=== PATIENT | male | born 1995 | race Caucasian/White ===

== ENCOUNTER → 2021-08-03 12:10 | Outpatient (CLI) | payer OTHER, SELFPAY ==
--- NOTE | 2021-08-03 12:15 | XR_ITS ---
PROCEDURE: XR TIBIA FIBULA RT 2V CLINICAL INDICATION: PAIN IN RT LEG COMPARISON: No exams were available for comparison FINDINGS: No fracture or dislocation. No lytic or blastic change. There is normal mineralization. The joint spaces are well-preserved. No significant degenerative/arthritic changes. No erosive changes evident. Other findings:None. IMPRESSION: No acute findings. Dictated by: Evert Hastings MD 08/03/2021 19:35 Evert Hastings MD in [place] 08/03/2021 19:35
== END ==
PROVIDERS: PCP Family Medicine; Visit Provider Family Medicine
DX: M79.604 Pain in right leg (principal)
CPT/HCPCS: 73590

== ENCOUNTER 2021-08-22 15:58 | Emergency (ER) | payer OTHER, SELFPAY ==
[2021-08-22 15:59] VITALS: BP 135/79; PULSE 87; RESP 18; TEMP 36.7; O2SAT 96; BMI 26.2
[2021-08-22 16:18] VITALS: BP 135/79; PULSE 90; RESP 14; O2SAT 96
--- NOTE | 2021-08-22 16:27 | [facility].EDGENADL ---
ED Disposition Clinical Impression: Pain of left lower extremity, Elevated d-dimer Disposition: Home, Self-Care Condition on Discharge: Good Additional Instructions: Return to the hospital tomorrow morning for Doppler of your left lower extremity. Take Xarelto as prescribed twice daily. Return to the emergency room if intolerable pain, severe swelling, chest pain, shortness of breath, or coughing up blood. Referrals: Asim Beltran MD [Primary Care Provider] - - Critical Care Critical Care Time: No Attestation: On 08/22/21, the high probability of a clinically significant, sudden or life threatening deterioration of the following system(s) required my full and direct attention, intervention and personal management. The time I documented below is in addition to time spent performing reported procedures but includes the following listed in this critical care notation. Medical Decision Making - Dannie Inquiry Pt receiving controlled substance: No Vital Signs: 08/22/21 15:59 08/22/21 16:18 08/22/21 16:30 Temperature 98.1 F Temperature Source Oral Pulse Rate 90 78 Pulse Rate [Right Radial] 87 Respiratory Rate 18 14 15 Blood Pressure 135/79 133/86 Blood Pressure [Right Arm] 135/79 Blood Pressure Mean 95 101 Blood Pressure Mean [Right Arm] 97 Blood Pressure Source [Right Arm] Automatic Cuff Blood Pressure Position [Right Arm] Sitting 02 Sat by Pulse Oximetry 96 96 97 Oxygen Delivery Method Room Air 08/22/21 17:00 08/22/21 17:30 Temperature Temperature Source Pulse Rate 74 78 Pulse Rate [Right Radial] Respiratory Rate 15 15 Blood Pressure 142/85 H 133/69 Blood Pressure [Right Arm] Blood Pressure Mean 96 90 Blood Pressure Mean [Right Arm] Blood Pressure Source [Right Arm] Blood Pressure Position [Right Arm] 02 Sat by Pulse Oximetry 96 99 Oxygen Delivery Method - Lab Data Lab Results 08/22/21 16:40: WBC 8.8, RBC 5.50, Hgb 15.7, Hct 46.0, MCV 83.6, MCH 28.5, MCHC 34.0, RDW 13.5, Plt Count 221, MPV 7.9, Neut % (Auto) 64.7, Lymph % (Auto) 26.4, [place] % (Auto) 7.1, Eos % (Auto) 0.9, Baso % (Auto) 0.9, Neut # (Auto) 5.7, Lymph # (Auto) 2.3, [place] # (Auto) 0.6, Eos # (Auto) 0.1, Baso # (Auto) 0.1 08/22/21 16:40: D-Dimer 5.20 H 08/22/21 16:40: Sodium 142, Potassium 4.1, Chloride 102, Carbon Dioxide 33 H, Anion Gap 11.1, BUN 16, Creatinine 0.90, Estimated Creat Clear 159, Estimated GFR 102, Est GFR ( Amer) 123, Glucose 104 H, Calcium 9.5 Result diagrams: 08/22/21 16:40 08/22/21 16:40 Orders (Tests/Meds): ED MEDICATIONS Generic Name Dose Route Start Last Admin Trade Name Freq PRN Reason Stop Dose Admin Rivaroxaban 1 juani 08/22/21 21:00 Rivaroxaban 15mg Take Home Pack (6) PO 09/21/21 20:59 BID MARIO Medical Decision Narrative: Elevated D-dimer. He will be started on Xarelto and return tomorrow morning for Doppler of his left lower extremity. General Adult HPI - General Chief complaint: PAIN Stated complaint: L leg pain radiating down to foot Time Seen by Provider: 08/22/21 16:20 Mode of Arrival: Ambulatory Limitations: No Limitations Description of Symptoms (Recalled from ER Triage Doc. by RN): Pt c/o left leg pain from knee extending down calf and into back of foot that has worsened over the last 1.5 weeks. No known injury. Swelling and tightness noted. Slight discoloration noted after last couple days per pt. Pt states that at times, his lower leg will tingle, but it is not constant. - History of Present Illness HPI narrative: 1-1/2-week history of pain in his left lower extremity. States that he initially felt the pain or pop in his posterior distal thigh or popliteal area. Since then the pain has moved down to so that it is mostly in his foot in the heel area when he walks. Also has pain in his calf. He feels like he sees veins that are popped out in the region of his distal thigh medially. No injury recalled. No chest pain or
[2021-08-22 16:30] VITALS: BP 133/86; PULSE 78; RESP 15; O2SAT 97
[2021-08-22 16:52] LABS: Basophils # 0.1 K/mm3 (0-0.2); Basophils % 0.9 % (0.1-2.0); Eosinophils # 0.1 K/mm3 (0.0-0.4); Eosinophils % 0.9 % (0.1-12.0); Hemoglobin 15.7 g/dL (14.1-18.0); Lymphocytes # 2.3 K/mm3 (0.7-4.5); Lymphocytes % 26.4 % (10-50); Mean Corpuscular Hemoglobin 28.5 pg (27.0-31.2); Mean Corpuscular Volume 83.6 fl (80-94); Mean Platelet Volume 7.9 fl (7.4-10.4); Monocytes # 0.6 K/mm3 (0.1-1.0); Monocytes % 7.1 % (1.7-9.3); Neutrophils # 5.7 K/mm3 (1.8-7.8); Neutrophils % 64.7 % (37.0-80.0); Platelet Count 221 K/mm3 (142-424); Red Cell Distribution Width 13.5 % (11.5-17.5); White Blood Count 8.8 K/mm3 (4.8-10.8)
[2021-08-22 16:59] LABS: Anion Gap 11.1 mEq/L (5-15); Blood Urea Nitrogen 16 mg/dl (9-20); Calcium 9.5 mg/dl (8.4-10.2); Carbon Dioxide 33 mmol/L (22.0-30.0); Chloride 102 mmol/L (98-107); Creatinine Clearance Estimated 159 mL/min (50-200); Estimated Glomerular Filt Rate 102 ml/min (>60); GFR (African American) 123 ML/MIN (>60); Glucose 104 mg/dl (74-100); Potassium 4.1 mmoL/L (3.5-5.1); Sodium 142 mmol/L (136-145)
[2021-08-22 17:00] VITALS: BP 142/85; PULSE 74; RESP 15; O2SAT 96
[2021-08-22 17:30] VITALS: BP 133/69; PULSE 78; RESP 15; O2SAT 99
[2021-08-22 18:22] VITALS: BP 121/68; PULSE 70; RESP 16; TEMP 36.6; O2SAT 98
== END 2021-08-22 18:23 | disposition home or self-care (01) ==
PROVIDERS: Emergency Provider Emergency Medicine; PCP Family Medicine
DX: M79.662 Pain in left lower leg (principal)
CPT/HCPCS: 80048; 85025; 85378; 99282

== ENCOUNTER → 2022-05-04 15:50 | Outpatient (CLI) | payer OTHER, SELFPAY ==
[2022-05-10 23:08] LABS: Protein S Antigen, Total 139 % (60-150)
[2022-05-18 06:32] LABS: Protein C Antigen 123 % (60-150)
== END ==
PROVIDERS: PCP Family Medicine; Visit Provider Family Medicine
DX: M79.605 Pain in left leg (principal); R79.89 Other specified abnormal findings of blood chemistry
CPT/HCPCS: 36415; 81241; 85302; 85305; 85670

== ENCOUNTER → 2022-11-17 16:23 | Outpatient (CLI) | payer OTHER, SELFPAY ==
--- NOTE | 2022-11-17 | CA_ITS ---
FINAL REPORT TECHNIQUE: Ultrasound images of the deep venous system were obtained from the left groin to the calf veins. CLINICAL HISTORY: E pain and palpable chords/knots in distal left thigh, no trauma, history of DVT in LLE 2020. Patient unsure of location of previous DVT, study done at [facility]. COMPARISON: None FINDINGS: The deep venous system is normally compressible. Normal flow is identified. IMPRESSION: No evidence of left lower extremity DVT. Reviewed, Interpreted and Dictated by Agustin Mccracken III, MD Transcribed by Juliana Bartholomew Authenticated and [facility]
[2022-11-19 11:00] LABS: Rapid Plasma Reagin Ab Titer Non Reactive (NonRea<1:1)
[2022-11-19 18:07] LABS: Anti-Cardiolipin Antibody IgG <9 GPL U/mL (0-14)
[2022-11-20 13:45] LABS: Anti-Thrombin III Antigen 98 % (72-124); Antithrombin Activity 124 % (75-135); Protein S Antigen, Total 92 % (60-150)
[2022-11-20 18:09] LABS: Protein C Antigen 58 % (60-150)
[2022-11-22 16:44] LABS: Anti-Cardio Antibody IgM 14 MPL U/mL (0-12); Anticardiolipin Ab,IgA,Qn <9 APL U/mL (0-11)
[2022-11-22 18:04] LABS: Beta-2 Glycoprotein I Ab, IgA 30 (0-25); Beta-2 Glycoprotein I Ab, IgG <9 (0-20); Beta-2 Glycoprotein I Ab, IgM 13 (0-32)
== END ==
PROVIDERS: PCP Family Medicine; Visit Provider Family Medicine
DX: M79.605 Pain in left leg (principal); Z86.718 Personal history of other venous thrombosis and embolism; Z20.2 Contact with and (suspected) exposure to infections with a predominantly sexual mode of transmission
CPT/HCPCS: 36415; 81241; 85300; 85301; 85302; 85305; 86146; 86147; 86593; 93971

== ENCOUNTER 2024-01-03 15:06 | Outpatient (CLI) | payer BC, SELFPAY ==
--- NOTE | 2024-01-03 15:09 | CA_ITS ---
FINAL REPORT TECHNIQUE: Ultrasound images of the deep venous system were obtained from the left groin to the calf veins. CLINICAL HISTORY: Left medial thigh pain, painful varicosities. FINDINGS: The deep venous system is normally compressible. Normal flow is identified. IMPRESSION: No evidence of left lower extremity DVT. Reviewed, Interpreted and Dictated by Jonny Gregory MD Transcribed by Mary Goodrich Authenticated and [facility]
== END 2024-01-03 23:59 | disposition home or self-care (01) ==
LOC: RT 15:06
PROVIDERS: PCP Family Medicine; Visit Provider Nurse Practitioner Family
DX: M79.605 Pain in left leg (principal); I86.8 Varicose veins of other specified sites
CPT/HCPCS: 93971